=== PATIENT | female | born 1975 | race Caucasian/White ===

== ENCOUNTER 2017-05-01 15:29 | Emergency (ER) | payer MEDICAID ==
[2017-05-01 15:42] VITALS: PULSE 74; RESP 18; TEMP 98; O2SAT 97
--- NOTE | 2017-05-01 16:04 | EDPHY ---
H & P Stated Complaint: c/o Rt big toe injury from kicking wall Mon HPI/ROS: CHIEF COMPLAINT: Right toe pain HISTORY OF PRESENT ILLNESS: This is a healthy 42-year-old who has had persistent right great toe pain after kicking a kitchen counter 11 days ago. She tried icing and resting and elevating her foot when possible. She has not taken [id number]-[id number] pain medication. She has had minimal improvement in the pain which is predominantly in the distal great toe. No other injury. She was wearing a running shoe when this occurred. She denies numbness or weakness. REVIEW OF SYSTEMS: A ten point review of systems was performed and is negative with the exception of the items mentioned in the HPI. Past medical history: Past surgical history: Family history: Social history: General Appearance: Alert. Vital signs reviewed. Limited physical exam performed. Eyes: Pupils equal and round, no conjunctival injection, no discharge. Anicteric. Respiratory: Lungs are clear to auscultation; no wheezes, rales, or rhonchi. Cardiovascular: Regular rate and rhythm; no murmur, rub, or gallop. Gastrointestinal: Abdomen is soft and nontender, no masses or organomegaly, bowel sounds normal. Skin: Warm and dry, no rashes on exposed skin, normal color. Extremities: No lower extremity edema, no calf tenderness or swelling. Tenderness with palpation of the right great toe, worse distally. No obvious deformity or bruising but there is some swelling of the distal right great toe. No other bony tenderness involving the right foot. Right thigh, knee, lower leg, and ankle have no tenderness to palpation. Full active range of motion of the right lower extremity. Neurological: Alert and oriented. Moving all four extremities easily and equally. Sensation intact to light touch over the right lower extremity and foot. Psychiatric: Normal affect. - Personal History LMP (Females 10-55): 8-14 Days Ago Current Tetanus Diphtheria and Acellular Pertussis (TDAP): Yes - Medical/Surgical History Other PMH: denies - Social History Smoking Status: Never smoked Constitutional: Initial Vital Signs Temperature (C) 36.6 C 05/01/17 15:39 Heart Rate 74 05/01/17 15:39 Respiratory Rate 18 05/01/17 15:39 Blood Pressure 132/62 H 05/01/17 15:39 O2 Sat (%) 97 05/01/17 15:39 O2 Delivery Mode Room Air Allergies/Adverse Reactions: No Known Allergies Allergy (Unverified 10/10/10 22:06) Home Medications: Medication Instructions Recorded No Medications [NO HOME 1 ea [facility] [place] 10/10/10 MEDICATIONS] Medical Decision Making - Diagnostics Imaging Results: Imaging Impressions Foot X-Ray 05/01/17 16:02 Impression: Nondisplaced corner fracture of the distal phalanx of the great toe. ED Course/Re-evaluation: X-ray results reviewed with patient. She has a nondisplaced corner fracture of the distal phalanx of the great toe. No dislocation. No other bony injuries identified. Her great toes is heidi taped to the adjacent toe. Will try a postop shoe for comfort. Differential Diagnosis: Considered a differential diagnosis that includes fracture, dislocation, contusion, and sprain. Departure - Departure Disposition: Home, Routine, Self-Care Clinical Impression: Phalanx fracture, foot Qualifiers: Encounter type: initial encounter Toe: great toe Fracture type: closed Phalanx : distal Fracture alignment: nondisplaced Laterality: left Qualified Code(s): S92.425A - Nondisplaced fracture of distal phalanx of left great toe, initial encounter for closed fracture Condition: Good Instructions: Toe Fracture (ED), R.I.C.E. Treatment (ED) Additional Instructions: Adult Pain & Fever Control: We recommend Acetaminophen (Tylenol) and Ibuprofen (Motrin,Advil) for pain and fever control. When fever is high or pain severe, both drugs can be used at the same time, but at different intervals. Please note the time differences. Your dose is: Acetaminophen 650mg every 4 to 6 hours Ibuprofen 400mg every 6 hours with food OR Note: do not take Acetaminophen with Hydrocodone (Vicodin, Lortab) or Oycodone (Percocet). These medications also contain Acetaminophen. No more than 3000mg of Acetaminophen should be taken in 24 hours (for an adult). Referrals: Trish Hamilton MD [Primary Care Provider] - As per Instructions
[2017-05-01 17:09] VITALS: BP 125/65
== END 2017-05-01 17:01 | disposition home or self-care (01) ==
LOC: CED 15:29
DX: S92.425A Nondisplaced fracture of distal phalanx of left great toe, initial encounter for closed fracture (principal); W22.8XXA Striking against or struck by other objects, initial encounter
CPT/HCPCS: 73630-PO

== ENCOUNTER 2017-11-18 13:53 | Emergency (ER) | payer MEDICAID ==
[2017-11-18 14:04] VITALS: BP 101/79
[2017-11-18] MEDS ORDERED: PROPARACAINE/FLUORESCEIN SOD 5 ML OPHT.BTL ONE (14:12)
[2017-11-18] MEDS ORDERED: PROPARACAINE 0.5% 15 ML OPHT DROP ONE (14:12)
--- NOTE | 2017-11-18 14:35 | EDPHY ---
H & P Time Seen by Provider: 11/18/17 14:07 HPI/ROS: This patient describes a 2 day history of a eye redness and increasing pain now 6/10 to 7/10 intensity with associated redness and this morning she had matting of her eyelashes. She describes slight blurred vision as well. She also complains of a sore throat of moderate intensity that worsens when she swallows over the same period of time. Finally, she reports slight right ear discomfort 3/10 intensity. She came in by private vehicle with her for further evaluation of the symptoms. ROS: Constitutional: No fevers HEENT: No eye trauma. No left eye symptoms. She does not were contacts. No nasal congestion or coryza. No sinus pain. No lip lesions or cold sores recently though her had a cold sore last week. Pulmonary: No cough shortness of breath GI: No nausea vomiting Integumentary: No skin rash 7 point ROS is otherwise negative. Past Medical/Surgical History: Otherwise healthy Smoking Status: Never smoked Physical Exam: Physical Exam Vital signs are normal. General: No acute distress HEENT: Nose: Clear bilaterally. No sinus tenderness to percussion. Ears: External canals and tympanic membranes are clear with no erythema or abnormal findings bilaterally. Oropharynx: No the patient has right tonsillar swelling- mild with minimal exudate. No dysphonia. No drooling or stridor. No lip lesions. Eyes: Conjunctival injection of the right eye. Visual acuity is 20/50 right eye, 20/70 OS and 20/30 both eyes. Pupils equal and react to light. Extraocular motions are intact. With lashes are normal on slit-lamp exam patient has 45 small geographic shaped corneal lesions with dye uptake a mm last in size scattered across the cornea. She also has roque limbic geographic lesion that follows the shape of limits superiorly and inferiorly. Appreciate no sellar flare in the anterior chamber. Optic fundi are normal bilaterally. Neck: Supple with no meningismus. No lymphadenopathy Lungs: Clear to auscultation bilaterally with no rales, rhonchi or wheeze. No respiratory distress. Cardiac: Regular rate and rhythm with no murmur gallop or rub Skin: No rash or pallor. Neuro: Alert with no focal deficits noted. Initial differential diagnosis: At no virus or other viral URI with keratitis, HSV keratitis, strep pharyngitis Constitutional: Initial Vital Signs Temperature (C) 37.4 C 11/18/17 13:57 Heart Rate 93 11/18/17 13:57 Respiratory Rate 16 11/18/17 13:57 Blood Pressure 101/79 11/18/17 13:57 O2 Sat (%) 97 11/18/17 13:57 O2 Delivery Mode Room Air Allergies/Adverse Reactions: No Known Allergies Allergy (Verified 11/18/17 13:56) Home Medications: Medication Instructions Recorded No Medications [NO HOME [address] [facility]ICATIONS] Ganciclovir [Zirgan] 1 gm OP 5XD #5 gel..gram. 11/18/17 Ofloxacin 0.3% [Ocuflox 0.3% (RX)] 2 drops EACHEYE Q1 #1 btl 11/18/17 traMADol [Ultram 50 mg (*)] 50 - 100 mg PO Q4 PRN #20 tab 11/18/17 MDM/Departure - MDM ED Course/Re-evaluation: A consult to Dr. Watkins-scalp specialist line controller regarding this patient. He considers both at no virus or similar and HSV keratitis is being possibilities in this patient the suggest we cover her with both Zirgan and Ocuflox. I counseled patient regarding her diagnosis and treatment plan follow up with Dr. Juliana haley tomorrow in his office for further eye exam. She is treated here with ibuprofen and will continue on ibuprofen, Tylenol and tramadol if needed for pain control - Depart Disposition: Home, Routine, Self-Care Clinical Impression: Keratitis Pharyngitis Qualifiers: Pharyngitis/tonsillitis etiology: unspecified etiology Qualified Code(s): J02.9 - Acute pharyngitis, unspecified Condition: Good Instructions: Pharyngitis (ED), Keratitis (ED) Additional Instructions: Diagnosis: Keratitis (corneal infection) 2. Pharyngitis Plan: Wash hands frequently 0 can eye ointment 5 times a day Ocuflox antibiotic drops Ibuprofen Tylenol for pain Tramadol in addition if needed for pain No driving, alcohol or come tramadol Call Dr. Watkins tomorrow morning-scalp specialist to arrange a follow-up appointment for tomorrow. Prescriptions: Ganciclovir [Zirgan] 1 gm OP 5XD #5 gel..gram. Ofloxacin 0.3% [Ocuflox 0.3% (RX)] 2 drops EACHEYE Q1 #1 btl traMADol [Ultram 50 mg (*)] 50 - 100 mg PO Q4 PRN #20 tab PRN Reason: breakthrough pain Referrals: Radha Samuel DO [Primary Care Provider] - As per Instructions Jazlyn Watkins MD [Medical Doctor] - As per Instructions
== END 2017-11-18 15:15 | disposition home or self-care (01) ==
LOC: CED 13:53
DX: J02.9 Acute pharyngitis, unspecified (principal); H16.9 Unspecified keratitis

== ENCOUNTER 2018-09-23 18:34 | Emergency (ER) | payer MEDICAID ==
[2018-09-23] MEDS ORDERED: IPRATROPIUM/ALBUTEROL 3 ML DEYVIAL IH ONE (19:44)
[2018-09-23] MEDS ORDERED: AZITHROMYCIN 250 MG TAB PO ONE (20:14)
--- NOTE | 2018-09-23 20:21 | EDPHY ---
H & P Time Seen by Provider: 09/23/18 18:45 HPI/ROS: CHIEF COMPLAINT: Cough HISTORY OF PRESENT ILLNESS: Patient states she has had a cold with runny nose and congestion for about 2 weeks. She has had a cough for most that time and has felt some dyspnea on exertion and decreased exercise tolerance related to cough and fatigue. She states she spent all day in bed on Sunday. Cough is productive of green sputum. She said although she felt pretty well this morning by the evening she was much worse. She has had low-grade fevers the highest being 100 degrees. She has had some nausea but no vomiting or diarrhea. She states that at the time of onset of her symptoms her kids have had similar illness but there well now. REVIEW OF SYSTEMS: Constitutional: No fever, no chills. Eyes: No discharge. ENT: Some sore throat and bilateral ear pain. Cardiovascular: No chest pain, no palpitations. Respiratory: Per HPI Gastrointestinal: No abdominal pain, no vomiting. Genitourinary: No dysuria. Musculoskeletal: No back pain. Skin: No rashes. Neurological: No headache. General Appearance: Alert, mildly ill-appearing, pale, clammy Eyes: Pupils equal and round no pallor or injection. ENT, Mouth: Mucous membranes moist. Oropharynx clear, TMs clear bilaterally. Respiratory: There are no retractions, lungs are clear to auscultation. Cardiovascular: Regular rate and rhythm. Gastrointestinal: Abdomen is soft and nontender, no masses, bowel sounds normal. Neurological: Awake alert, no focal neurologic deficits. Skin: Warm and dry, no rashes. Musculoskeletal: Neck is supple nontender. Extremities are symmetrical, full range of motion, no edema. Psychiatric: Patient is oriented X 3, there is no agitation. Medical/surgical history: PACs. Social history: Denies tobacco, drugs, EtOH. Smoking Status: Never smoked Constitutional: Initial Vital Signs Temperature (C) 37.7 C 09/23/18 18:43 Heart Rate 108 H 09/23/18 18:43 Respiratory Rate 20 09/23/18 18:43 Blood Pressure 147/94 H 09/23/18 18:43 O2 Sat (%) 95 09/23/18 18:43 O2 Delivery Mode Room Air Allergies/Adverse Reactions: No Known Allergies Allergy (Verified 09/23/18 18:42) Home Medications: Medication Instructions Recorded No Medications [NO HOME 1 ea [facility] 10/10/10 MEDICATIONS] Azithromycin 250 mg PO DAILY 4 Days #4 tablet 09/23/18 Medical Decision Making - Diagnostics Imaging Results: Imaging Impressions Chest X-Ray 09/23/18 19:44 Impression: Streaky opacities in the perihilar and lower lungs bilaterally, airways disease versus pneumonia with clinical correlation recommended. Imaging: I viewed and interpreted images myself Differential Diagnosis: Differential diagnosis includes but is not limited to viral upper respiratory infection, pneumonia, strep pharyngitis, measles. After evaluation likely left lower lobe pneumonia without evidence of hypoxia or hemodynamic instability. Patient given DuoNeb in the emergency department with minimal improvement in her symptoms. Will be given course of antibiotics for the pneumonia. Recommended rest, plenty of fluids, close follow-up with primary care physician. Also discussed return precautions in detail. Understands plan and stable for continued outpatient care. - Data Points Medications Given: Discontinued Medications Albuterol/Ipratropium (Duoneb) 3 ml [facility] EDNOW ONE Stop: 09/23/18 19:45 Last Admin: 09/23/18 20:01 Dose: 3 ml Azithromycin (Zithromax) 500 mg PO EDNOW ONE PRN Reason: Protocol Stop: 09/23/18 20:15 Last Admin: 09/23/18 20:38 Dose: 500 mg Departure - Departure Disposition: Home, Routine, Self-Care Clinical Impression: Pneumonia Qualifiers: Pneumonia type: due to unspecified organism Laterality: left Lung location: lower lobe of lung Qualified Code(s): J18.1 - Lobar pneumonia, unspecified organism Condition: Fair Instructions: Community Acquired Pneumonia (ED) Additional Instructions: Take antibiotics as prescribed. Rest, drink plenty of fluids. Follow up with your primary care physician for recheck in 5-7 days. Return to the emergency department if you develops high fevers, worsening shortness of breath, dehydration or other concerning new symptoms. Referrals: Trish Hamilton MD [Primary Care Provider] - As per Instructions Prescriptions: Azithromycin 250 mg PO DAILY 4 Days #4 tablet
[2018-09-23 20:44] VITALS: BP 123/76
== END 2018-09-23 20:43 | disposition home or self-care (01) ==
LOC: CED 18:34
DX: J18.1 Lobar pneumonia, unspecified organism (principal)
CPT/HCPCS: 71046-PO; 99283-ER